=== PATIENT | female | born 1950 | race Caucasian/White ===

== ENCOUNTER → 2018-02-02 | Outpatient (CLI) | payer MEDICARE, OTHER ==
[~2018-02-02] MED LIST: ACET325 PO; ASPI81CH PO; ATOR20 PO; Advil200 M1 PO; CALCIUM 600 +1 EAC4 PO; CELE200 PO; CLOB.05TO TOP; COAL TAR TOP; CYAN500 PO; DICLOFENAC SOD100 G1 TOP; DIPH50 PO; DOC250 PO; DULO60 PO; Flunisolide25 ML TOP; GLUCOSA-CHOND-1 EACH PO; HYDMOR4 PO; MELA3 PO; METH10 PO; Maxalt10 MG PO; Omeprazole20 M1 PO; Oxytrol3.9 MG TP; Reclast 55 MG/100 M; Reclast 55 MG/100 M IV; SOLI5 PO; VITAMIN D34000 UNIT PO; [UNRECOGNIZED DRUG - OTHER]
[2018-02-04 13:52] LABS: Stool Occult Bld Immuno 1 Negative (NEGATIVE); Stool Occult Bld Immuno 2 Negative (NEGATIVE)
== END ==
LOC: LAB SHORT 07:20 → OLS 07:20 → LAB FUT 02-01 15:05
PROVIDERS: Internal Medicine
DX: Z12.11 Encounter for screening for malignant neoplasm of colon (principal); E78.5 Hyperlipidemia, unspecified; E55.9 Vitamin D deficiency, unspecified; M81.0 Age-related osteoporosis without current pathological fracture
CPT/HCPCS: G0328

== ENCOUNTER → 2018-02-03 | Outpatient (CLI) | payer MEDICARE, OTHER ==
[2018-02-05 12:08] LABS: CREATININE, URINE 73.8 mg/dL (Not Estab.); N-TELO/CREAT. RATIO 30 (0-89); N-TELOPEPTIDE 197 nmol BCE (Not Estab.)
== END | disposition home or self-care (01) ==
LOC: OLS 12:06 → LAB SHORT 12:06
PROVIDERS: Internal Medicine
DX: E78.5 Hyperlipidemia, unspecified (principal); E55.9 Vitamin D deficiency, unspecified; M81.0 Age-related osteoporosis without current pathological fracture; Z79.899 Other long term (current) drug therapy
CPT/HCPCS: 82523; 82570

== ENCOUNTER 2019-03-09 10:52 | Day surgery (SDC) | payer MEDICARE, OTHER ==
[~2019-03-09] VITALS: Ht 160 cm; Wt 83.6 kg
--- NOTE | 2019-03-09 11:38 | NUR ---
03/09/19 Leta8 Ramila Castellon SIMETHICONE USED DURING PROCEDURE.
== END 2019-03-09 12:09 | disposition home or self-care (01) ==
LOC: ORSCSDS 10:52
PROVIDERS: Internal Medicine Gastroenterology
PROC: 0DB58ZX Excision of Esophagus, Via Natural or Artificial Opening Endoscopic, Diagnostic (ICD-10-PCS; principal; 2019-03-09 12:00)
PROC: 0DB68ZX Excision of Stomach, Via Natural or Artificial Opening Endoscopic, Diagnostic (ICD-10-PCS; principal; 2019-03-09 12:00)
DX: R10.11 Right upper quadrant pain (principal); R07.89 Other chest pain; K29.70 Gastritis, unspecified, without bleeding; R11.10 Vomiting, unspecified; F32.9 Major depressive disorder, single episode, unspecified; Z87.891 Personal history of nicotine dependence; E66.9 Obesity, unspecified; Z68.32 Body mass index [BMI] 32.0-32.9, adult; Z79.82 Long term (current) use of aspirin; Z79.899 Other long term (current) drug therapy
CPT/HCPCS: 88305; 88342; J2704; J7120

== ENCOUNTER 2019-07-06 07:11 | Day surgery (SDC) | payer MEDICARE, OTHER ==
[~2019-07-06] VITALS: Ht 160 cm; Wt 84.2 kg
--- NOTE | 2019-07-06 08:51 | NUR ---
07/06/19 [address] UNABLE TO ADVANCE WITH COLONIC SCOPE. SWTICHED TO UPPER SCOPE.
--- NOTE | 2019-07-06 09:33 | NUR ---
07/06/19 0933 Luis Angel Elkins PATIENT WAITING FOR MOST TO CALL BACK TO GET BARIUM ENEMA SHCEDULED. DENIES PAIN, N/V AT THIS TIME. WARM BLANKET GIVEN TO PATIENT AND CALL LIGHT WITHIN REACH.
== END 2019-07-06 09:51 | disposition home or self-care (01) ==
LOC: ORSCSDS 07:11
PROVIDERS: Internal Medicine Gastroenterology
PROC: 0DJD8ZZ Inspection of Lower Intestinal Tract, Via Natural or Artificial Opening Endoscopic (ICD-10-PCS; principal; 2019-07-06 08:15)
DX: Z12.11 Encounter for screening for malignant neoplasm of colon (principal); Z80.0 Family history of malignant neoplasm of digestive organs; K64.4 Residual hemorrhoidal skin tags; Z87.891 Personal history of nicotine dependence; Z79.899 Other long term (current) drug therapy
CPT/HCPCS: 74270; J0330; J0461; J2405; J2704; J7120

== ENCOUNTER → 2021-05-07 | Outpatient (CLI) | payer MEDICARE, OTHER ==
[2021-05-09 13:11] LABS: HPV 16 Negative (Negative); HPV 18 Negative (Negative); HPV OTHER HR TYPES Negative (Negative)
== END | disposition home or self-care (01) ==
LOC: LAB SHORT 16:41 → LAB 16:41
PROVIDERS: Obstetrics & Gynecology
DX: Z01.419 Encounter for gynecological examination (general) (routine) without abnormal findings (principal)
CPT/HCPCS: 87624; G0123

== ENCOUNTER 2024-07-06 10:14 | Day surgery (SDC) | payer MEDICARE, OTHER | END 2024-07-15 23:04 | disposition home or self-care (01) | LOC: MOI MAM 10:14 | DX: D05.11 Intraductal carcinoma in situ of right breast (principal); Z88.5 Allergy status to narcotic agent; Z88.6 Allergy status to analgesic agent | CPT/HCPCS: 19081; 88305; 88360; A4648 ==

== ENCOUNTER 2024-09-08 08:11 | Inpatient (IN) | payer MEDICARE, OTHER ==
[2024-09-08] VITALS (18 sets, daily range): BP systolic 95–150; BP diastolic 59–79
[~2024-09-08] VITALS: Ht 157.5 cm; Wt 86.0 kg
[~2024-09-08 08:11] MED LIST changes: +ALBU8HFA2; +DULO30 PO; +Flonase 0.05% N16 GM; +LOSA50 PO; +MELATONIN5 M1 PO; +NALOXONE H0.4 MG/1 M IM; +NEBI5 PO; +OMEP20ER PO; +OYSTER SHELL CALCIUM; +OZEMPIC0.25 MG/02 SQ; -Omeprazole20 M1 PO; +Vitamin D2000 UNIT PO
[2024-09-08] MEDS ORDERED: propofoL 20 ML IV ONE ×2 (08:17→10:22)
[2024-09-08] MEDS ORDERED: HYDROmorphone HCl/Pf 1MG SYR ONE (08:17)
[2024-09-08] MEDS ORDERED: Dexamethasone Sod Phos 10 MG/ML 1ML VIAL ONE (08:18)
[2024-09-08] MEDS ORDERED: Ondansetron HCl 2 MG / ML 2ML Vial ONE (08:18)
[2024-09-08] MEDS ORDERED: CeFAZolin Sodium 2,000 MG in NS 100 ML IV SCH (09:10)
[2024-09-08] MEDS ORDERED: Lactated Ringer's 1,000 ML IV SCH (09:10)
[2024-09-08] MEDS ORDERED: ALBU90OI INH (09:16)
[2024-09-08] MEDS ORDERED: CeFAZolin Sodium 2,000 MG VIAL ONE (09:31)
--- NOTE | 2024-09-08 09:37 | NUR ---
Ambulatory in Day Surgery History, Chart, Medications and Allergies reviewed before start of procedure. Pre-Op teaching done. Pt verbalizes understanding.
[2024-09-08] MEDS ORDERED: Methadone HCL 10 MG TAB PO ONE (10:35)
[2024-09-08] MEDS ORDERED: ePHEDrine Sulfate 50 MG/ML 1ML Injection ONE (10:56)
[2024-09-08] MEDS ORDERED: Melatonin 5 MG Tablet PO PRN (11:50)
[2024-09-08] MEDS ORDERED: Acetaminophen 325 MG TABLET PO PRN (11:50)
[2024-09-08] MEDS ORDERED: HYDROmorphone HCl 4 MG Tab PO PRN (11:55)
[2024-09-08] MEDS ORDERED: Magnesium Hydroxide Conc 10 ML UDC PO PRN (13:05)
[2024-09-08] MEDS ORDERED: Ondansetron HCl 2 MG / ML 2ML Vial IV PRN (13:05)
[2024-09-08] MEDS ORDERED: FLU VACC TS2024-25(6MOS UP)/PF 45 MCG/0.5 ML SYRINGE IM ONE (13:05)
--- NOTE | 2024-09-08 13:10 | NUR ---
POST OP NOTE PT TO ROOM 228 FROM PACU. VSS, O2 SATS >92% ON 2LNC, ENCOURAGING DB&C. INCISION SITE C/D/I, BREAST BINDER IN PLACE. PT MEDICATED FOR PAIN PER EMAR. FRIEND AT BEDSIDE. PT IS TOLERATING PO FLUIDS AND REG DIET. HAS NOT BEEN OOB SINCE SURGERY. CALL LIGHT IN REACH.
[2024-09-08] MEDS ORDERED: Albuterol HFA200 ACT/6.7 GM INH INH PRN (13:15)
--- NOTE | 2024-09-08 16:50 | NUR ---
SHIFT SUMMARY PT IS POD0 FOR R MASTECTOMY W/ SENTINEL NODE BIOPSY. PT IS A/O X4, AMBULATING SBA TO BR, HAS VOIDED. URINE IS GREEN TINGED DUE TO DYE USED FOR BIOPSY. TOLERATING PO FLUIDS AND SOME SNACKS. INCISION SITE C/D/I, BREAST BINDER IN PLACE. PT HAS CHRONIC BILAT SHOULDER AND BACK PAIN, MEDICATED PER EMAR W/ TOLERABLE RESULTS, EGG CRATES ON BED FOR COMFORT. PT RESTING COMFORTABLY. VSS. O2 SATS 92% ON 2LNC. PT RESTING W/ CALL LIGHT IN REACH.
[2024-09-08] MEDS ORDERED: Carvedilol 3.125 MG Tab PO SCH (17:00)
--- NOTE | 2024-09-08 18:00 | NUR ---
140ML OF SANGUINEOUS DRAINAGE FROM TOM DRAIN, OTHER TOM DRAIN W/ NO DRAINAGE. SOME SCANT BLEEDING FROM INSERTION SITE OF TOM, DRESSING CHANGED, C/D/I CURRENTLY. SURGICAL SITE REMAINS C/D/I. W/ STERI STRIPS. PT REPORTS SHE IS COMFORTABLE, VSS. CURRENTLY SITTING AT EOB EATING DINNER, CALL LIGHT IN REACH.
[2024-09-08] MEDS ORDERED: DiphenhydrAMINE HCl 50 MG Cap PO SCH (21:00)
[2024-09-08] MEDS ORDERED: Methadone HCL 10 MG TAB PO SCH (21:00)
[2024-09-09 04:00] VITALS: BP 97/62
--- NOTE | 2024-09-09 05:36 | NUR ---
SHIFT SUMMARY POD 1 R MASECTOMY PT ABLE TO REST DURING THE NIGHT. PAIN MANAGED PER EMAR. TOLERAING PO INTAKE, VOIDING WELL. DRESSING TO CHEST IN C/D/I, X2 TOM DRAIN DRESSING IS C/D/I. TOM #1 IS HAVING SANGINEOUS OUTPUT, #2 HASNT HAD ANY OUTPUT YET. BULBS ARE COMPRESSED. PT SBA TO THE BATHROOM. VSS. PLAN TO D/C HOME TODAY. NO OTHER CONCERNS AT THIS TIME, CALL LIGHT WITHIN REACH
[2024-09-09] MEDS ORDERED: Omeprazole 20 MG CapCR PO SCH (06:00)
[2024-09-09 07:07] VITALS: BP 112/55
[2024-09-09] MEDS ORDERED: CARV3.125 PO (07:48)
[2024-09-09] MEDS ORDERED: DULCOLAX400 MG/5 M PO (07:49)
[2024-09-09] MEDS ORDERED: DULoxetine HCL 60 MG Capsule DR PO SCH (09:00)
[2024-09-09] MEDS ORDERED: Atorvastatin 10 MG Tab PO SCH (09:00)
[2024-09-09] MEDS ORDERED: Docusate Sodium 250 MG Cap PO SCH (09:00)
[2024-09-09] MEDS ORDERED: Celecoxib 100 MG Cap PO SCH (09:00)
[2024-09-09] MEDS ORDERED: Losartan Potassium 50 MG Tab PO SCH (09:00)
--- NOTE | 2024-09-09 11:20 | NUR ---
DISCHARGE NOTE PT A/OX4. ARISTEO PO INTAKE AND VOIDING. ADEQUATE PAIN CONTROL WITH MEDS. PT EDUCATED ON TOM DRAINS AND DRESSING CHANGES. PT VERBALIZES UNDERSTANDING. DRESSING CHANGED PRIOR TO DISCHARGE BY PROVIDER. PT TO F/U NEXT WEEK WITH SURGEON. PT SENT HOME WITH EXTRA DRESSINGS AND CUP FOR TOM DRAINS. PT ESCORTED TO LOBBY VIA WC AND FRIEND TO GIVE RIDE HOME.
== END 2024-09-09 11:14 | disposition home or self-care (01) | DRG 581 ==
LOC: SURS 08:11 → MEDS 08:11 → PRE IP 08:30 → SURS 13:04
PROVIDERS: ADMIT Surgery
PROC: 07B50ZX Excision of Right Axillary Lymphatic, Open Approach, Diagnostic (ICD-10-PCS; 2024-09-08)
PROC: 0HTT0ZZ Resection of Right Breast, Open Approach (ICD-10-PCS; principal; 2024-09-08 10:00)
DX: D05.11 Intraductal carcinoma in situ of right breast (principal); N64.1 Fat necrosis of breast; J43.9 Emphysema, unspecified; I10 Essential (primary) hypertension; K58.9 Irritable bowel syndrome, unspecified; G47.33 Obstructive sleep apnea (adult) (pediatric); E66.9 Obesity, unspecified; E55.9 Vitamin D deficiency, unspecified; M81.0 Age-related osteoporosis without current pathological fracture; K21.9 Gastro-esophageal reflux disease without esophagitis; G43.909 Migraine, unspecified, not intractable, without status migrainosus; M79.7 Fibromyalgia; E78.5 Hyperlipidemia, unspecified; G89.29 Other chronic pain; M54.50 Low back pain, unspecified; Z79.1 Long term (current) use of non-steroidal anti-inflammatories (NSAID); Z79.85 Long-term (current) use of injectable non-insulin antidiabetic drugs; Z88.8 Allergy status to other drugs, medicaments and biological substances; Z88.5 Allergy status to narcotic agent; Z88.1 Allergy status to other antibiotic agents; Z87.891 Personal history of nicotine dependence; Z79.891 Long term (current) use of opiate analgesic; Z68.34 Body mass index [BMI] 34.0-34.9, adult; Z01.810 Encounter for preprocedural cardiovascular examination
CPT/HCPCS: 38792; 80053; 85025; 87077; 87086; 87186; 88307; 88342; 93005; 93010; 94762; A9270; A9520; J0690; J1100; J1171; J2405; J2704; J7120

== ENCOUNTER 2025-01-11 16:00 | Emergency (ER) | payer MEDICARE, OTHER ==
[~2025-01-11] VITALS: Ht 157.5 cm; Wt 88.5 kg
[~2025-01-11 16:00] MED LIST changes: +ALBU90OI INH; +CARV3.125 PO; +DULCOLAX400 MG/5 M PO
[2025-01-11 16:42] LABS: BASOPHILS ABSOLUTE AUTO 0.06 K/mm3 (0.00-0.23); BASOPHILS PERCENT AUTO 1 % (0-2); EOSINOPHILS ABSOLUTE AUTO 0.02 K/mm3 (0.00-0.68); EOSINOPHILS PERCENT AUTO 0 % (0-6); Hematocrit 31.4 % (33.0-51.0); Hemoglobin 10.2 g/dL (11.5-16.0); IMMATURE GRAN ABSOLUTE AUTO 0.04 K/mm3 (0.00-0.10); IMMATURE GRAN PERCENT AUTO 0 % (0-1); LYMPHOCYTES ABSOLUTE AUTO 1.24 K/mm3 (0.84-5.20); LYMPHOCYTES PERCENT AUTO 13 % (21-46); MONOCYTES ABSOLUTE AUTO 1.01 K/mm3 (0.16-1.47); MONOCYTES PERCENT AUTO 11 % (4-13); Mean Corpuscular HGB 28.8 pg (26.0-34.0); Mean Corpuscular HGB Conc 32.5 g/dL (31.5-36.5); Mean Corpuscular Volume 89 fL (80-100); Mean Platelet Volume 8.7 fL (9.1-12.4); NEUTROPHILS ABSOLUTE AUTO 6.94 K/mm3 (1.96-9.15); NEUTROPHILS PERCENT AUTO 75 % (41-73); Platelet Count 262 K/mm3 (150-400); RDW Coefficient Variation 18.9 % (11.7-14.2); Red Blood Cell Count 3.54 M/mm3 (3.80-5.20); White Blood Cell Count 9.31 K/mm3 (4.00-11.30)
[2025-01-11 17:04] LABS: Albumin, Blood 3.8 g/dL (3.4-5.0); Albumin/Globulin Ratio 1.4 (0.8-1.8); Bilirubin, Total 0.6 mg/dL (0.1-1.0); Bun/Creatinine Ratio 27.8 (12.0-20.0); Calcium, Blood 9.9 mg/dL (8.5-10.1); Creatinine, Blood 0.76 mg/dL (0.40-1.00); Globulin, Blood 2.8 g/dL (2.2-4.0); Potassium, Blood 4.3 mmol/L (3.5-5.5); Total Protein, Blood 6.6 g/dL (6.4-8.2)
[2025-01-11] MEDS ORDERED: NS 1,000 ML IV SCH (19:00)
[2025-01-11 19:22] LABS: Free Thyroxine 1.11 ng/dL (0.70-1.60); Magnesium, Blood 1.9 mg/dL (1.6-2.4)
[2025-01-11 19:24] LABS: Thyroid Stimulating Hormone 1.82 uIU/mL (0.360-4.800)
[2025-01-11 20:15] VITALS: BP 174/97
== END 2025-01-11 20:22 | disposition home or self-care (01) ==
LOC: ER 16:00
PROVIDERS: Emergency Medicine; Physician Assistant
DX: R00.2 Palpitations (principal); G43.909 Migraine, unspecified, not intractable, without status migrainosus; Z87.891 Personal history of nicotine dependence; Z79.51 Long term (current) use of inhaled steroids; Z79.899 Other long term (current) drug therapy; Z88.6 Allergy status to analgesic agent; Z88.5 Allergy status to narcotic agent; Z88.1 Allergy status to other antibiotic agents; Z88.8 Allergy status to other drugs, medicaments and biological substances
CPT/HCPCS: 80053; 83735; 84439; 84443; 85025; 85379; 93005; 93010; 96360; 99285-25; J7030